=== PATIENT | female | born 1960 | race Caucasian/White ===

== ENCOUNTER 2016-11-26 16:37 | Observation (INO) ==
--- NOTE | 2016-11-26 17:04 | Emergency Department Note ---
Disposition Clinical Impression: Hyperglycemia, Febrile illness, Gastroenteritis Disposition: Admitted As Inpatient Condition: Fair Referrals: Domo Carter CNP [Primary Care Provider] - Forms: Work/School Release, ED Satisfaction Letter Time of Disposition: 19:52 (Latrell obsv) Abdominal Pain HPI - General Chief Complaint: ED Abdominal Pain Stated Complaint: Neck pain abdominal pain Time Seen by Provider: 11/26/16 16:48 Source: patient Mode of arrival: ambulatory Limitations: no limitations Nursing Notes Reviewed: Yes Vital Signs Reviewed: Yes - History of Present Illness HPI Narrative: Patient's been having lower abdominal pain but in addition she has also been having some sharp she has had no nausea no vomiting no diaphoresis she denies no vaginal discharges had a dry throat feels like there is cotton in her mouth she denies any blurred vision double vision loss vision she does admit that her sugars and an elevated running in the 3-400. She denies any chest pain or chest pressure she denies any cough hemoptysis or sputum production has had chest pressure or abdominal pain denies any burning or stinging she has had some incontinence of the urine secondary to coughing and hacking she denies any additional complaints but states she was exposed scarlatina or scarlet fever couple days Pt Subjective Complaint: abdominal pain Onset (ago): day(s) Consistency: constant Location: diffuse Pain Severity: mild Pain Scale: 2 Quality: aching Improves with: nothing Worsens with: nothing Context: history of similar episodes Associated symptoms: Reports: nausea, diarrhea. Denies: vomiting, fever, chills , constipation, dysuria, hematemesis, hematochezia, melena, hematuria, anorexia , syncope Treatments prior to arrival: none - Related Data Home Medications Medication Instructions Recorded Confirmed Atorvastatin Calcium 20 mg PO DAILY 11/26/16 11/26/16 Docusate [Colace] 100 mg PO BID 11/26/16 11/26/16 Gabapentin [Neurontin] 300 mg PO TID 11/26/16 11/26/16 Insulin ASPART [Novolog Flexpen] 6 unit SQ QIDAC 11/26/16 11/26/16 Insulin Glargine,Hum.rec.anlog 20 unit SQ QPM 11/26/16 11/26/16 [Basaglar Kwikpen U-100] Metformin HCl [Glucophage] 1,000 mg PO BID 11/26/16 11/26/16 Ondansetron ODT [Zofran ODT] 4 mg SL Q6HR 11/26/16 11/26/16 Allergies Allergy/AdvReac Type Severity Reaction Status Date / Time Sulfa (Sulfonamide AdvReac Rash Verified 05/25/16 09:46 Antibiotics) All systems ED: reviewed and negative except as stated. Constitutional: Reports: fever, weakness. Denies: chills Eyes: Denies: eye pain ENT ED: Denies: ear pain Cardiovascular: Reports: chest pain Respiratory: Denies: cough Gastrointestinal: Reports: abdominal pain, nausea, diarrhea Genitourinary: Denies: urgency Musculoskeletal: Denies: back pain Integumentary: Denies: abrasion Neurological: Denies: headache Psychiatric: Denies: anxiety Endocrine: Reports: fatigue, polydipsia, polyuria Hematological/Lymphatic: Denies: easy bleeding Allergic/Immunologic: Denies: facial swelling Physical Exam - General Limitations: no limitations General appearance: alert, in no apparent distress, anxious, obese - Head Head exam: atraumatic, normocephalic, normal inspection - Eye Eye exam: Present: normal appearance, PERRL - ENT ENT exam: normal exam, normal oropharynx, mucous membranes moist, normal external ear exam - Neck Neck exam: Present: normal inspection, full ROM, trachea midline - Chest Chest inspection: Present: normal inspection, symmetric chest wall rise - Respiratory Respiratory exam: Present: normal lung sounds bilaterally - Cardiovascular Cardiovascular exam: Present: regular rate, normal rhythm, normal heart sounds - Abdominal Exam Abdominal exam: Present: soft, tenderness, normal bowel sounds, other ( Consultations. Be well healed on the abdomen area and no evidence of redness around the sides). Absent: mass, pulsatile mass Abdominal tenderness: Present: LLQ, mild - Extremities Exam Extremities exam: Present: normal inspection, full ROM, normal capillary refill. Absent: tenderness, joint swelling - Expanded Lower Extremity Exam Neurovascular/Tendon exam: Present: normal capillary refill, normal fine/light touch Gait: observed and normal - Back Exam Back exam: Present: normal inspection, full ROM. Absent: muscle spasm - Neurological Exam Neurological exam: Present: alert, oriented X3, CN II-XII intact, normal gait - Psychiatric Psychiatric exam: Present: normal affect, normal mood - Skin Skin exam: Present: warm, dry, intact, normal color Course Course Narrative: patient seen and examin results been obtained patient was admitted for observation for IV hydration and repeat labs transferred to service of Dr. Dwyer stable Vital Signs Temperature 100.3 F H 11/26/16 16:41 Pulse Rate 105 11/26/16 16:41 Respiratory Rate 18 11/26/16 16:41 Blood Pressure 132/52 11/26/16 16:41 O2 Sat by Pulse Oximetry 97 11/26/16 16:41 Temperature 101.2 F H 11/26/16 18:54 Pulse Rate 97 11/26/16 18:54 Respiratory Rate 16 11/26/16 18:54 Blood Pressure 148/60 11/26/16 18:54 O2 Sat by Pulse Oximetry 96 11/26/16 18:54 Oxygen Delivery Oxygen Delivery Room Air Abdominal Pain - Differential Diagnosis Differential Diagnosis: Likely: abdominal pain non-specific, diverticulosis - Medical Records Medical records reviewed: Yes I reviewed the patient's medical records. - Lab Data Lab results reviewed: Yes I reviewed the patient's lab results. Result diagrams: 11/26/16 17:16 11/26/16 17:16 Lab Results 11/26/16 11/26/16 11/26/16 Range/Units 17:02 17:16 17:16 WBC (4.3-11.1) K/mcL RBC (3.82-4.97) M/mcL Hgb (11.5-15.4) g/dL Hct (35.3-44.9) % MCV (83.0-100.0) fL MCH (28.0-33.3) pg MCHC (31.6-35.5) g/dL RDW (11.5-14.5) % Plt Count (140-400) K/mcL MPV (9.4-12.4) fL Immature Gran % (0-4) % Seg Neutrophils % % Lymphocytes % % Monocytes % % Eosinophils % % Basophils % % Neutrophils # (1.6-8.9) K/mcL Lymphocytes # (0.6-4.6) K/mcL Monocytes # (0.0-1.3) K/mcL Eosinophils # (0.0-0.6) K/mcL Basophils # (0.0-0.2) K/mcL PT (9.4-12.1) Seconds INR APTT 29.0 (26.0-36.0) Seconds Sodium (136-145) mEq/L Potassium (3.5-4.5) mEq/L Chloride (98-109) mEq/L Carbon Dioxide (19-29) mEq/L BUN (7-20) mg/dL Creatinine (0.57-1.11) mg/dL Est GFR ( Amer) (> 60) Est GFR (Non-Af Amer) (> 60) BUN/Creatinine Ratio (6-26) Glucose (70-99) mg/dL Est Mean Plasma Glucose mg/dl Hemoglobin A1c ( - 5.6) % Calculated Osmolality (280-300) Calcium (8.6-10.8) mg/dL Magnesium (1.6-2.6) mg/dL Total Bilirubin (0.2-1.2) mg/dL AST (5-34) Units/L ALT (0-55) Units/L Alkaline Phosphatase (38-126) Units/L Troponin I (0-0.03) ng/mL Serum Total Protein (6.0-8.3) g/dL Albumin (3.5-5.0) g/dL Globulin (2.4-3.5) g/dL Albumin/Globulin Ratio (1.1-2.2) Lipase (8-78) Units/L Beta-Hydroxybutyric Acd 0.27 (0.02-0.27) mmol/L TSH (0.350-4.840) mcIU/mL Urine Color Yellow (Yellow) Urine Clarity Clear (Clear) Urine pH 5.0 (5.0-8.0) pH Units Ur Specific [place] 1.010 (1.010-1.025) Urine Protein Negative (Neg-Trace) mg/dL Urine Glucose (UA) 500 H (Normal) mg/dL Urine Ketones Trace H (Negative) mg/dL Urine Blood Trace-intact H (Negative) Urine Nitrite Negative (Negative) Urine Bilirubin Negative (Negative) Urine Urobilinogen Normal (Normal) mg/dL Ur Leukocyte Esterase Negative (Negative) Urine Microscopic RBC 0-3 (0-3) per hpf Urine Microscopic WBC 0-3 (0-3) per hpf Ur Squamous Epith Cells Few (None-Few) per lpf Urine Bacteria Few (None-Few) per hpf Urine Yeast Few H (None Seen) per hpf Ur Culture Indicated? NO (NO) 11/26/16 11/26/16 11/26/16 Range/Units 17:16 17:16 17:16 WBC 6.5 (4.3-11.1) K/mcL RBC 5.46 H (3.82-4.97) M/mcL Hgb 15.4 (11.5-15.4) g/dL Hct 44.8 (35.3-44.9) % MCV 82.1 L (83.0-100.0) fL MCH 28.2 (28.0-33.3) pg MCHC 34.4 (31.6-35.5) g/dL RDW 13.1 (11.5-14.5) % Plt Count 176 (140-400) K/mcL MPV 11.0 (9.4-12.4) fL Immature Gran % 0.5 (0-4) % Seg Neutrophils % 73.0 % Lymphocytes % 17.1 % Monocytes % 6.3 % Eosinophils % 2.5 % Basophils % 0.6 % Neutrophils # 4.7 (1.6-8.9) K/mcL Lymphocytes # 1.1 (0.6-4.6) K/mcL Monocytes # 0.4 (0.0-1.3) K/mcL Eosinophils # 0.2 (0.0-0.6) K/mcL Basophils # 0.0 (0.0-0.2) K/mcL PT 11.9 (9.4-12.1) Seconds INR 1.1 APTT (26.0-36.0) Seconds Sodium 137 (136-145) mEq/L Potassium 3.8 (3.5-4.5) mEq/L Chloride 100 (98-109) mEq/L Carbon Dioxide 21 (19-29) mEq/L BUN 9 (7-20) mg/dL Creatinine 0.82 (0.57-1.11) mg/dL Est GFR ( Amer) > 60 (> 60) Est GFR (Non-Af Amer) > 60 (> 60) BUN/Creatinine Ratio 11 (6-26) Glucose 317 H (70-99) mg/dL Est Mean Plasma Glucose mg/dl Hemoglobin A1c ( - 5.6) % Calculated Osmolality 295 (280-300) Calcium 9.5 (8.6-10.8) mg/dL Magnesium 2.0 (1.6-2.6) mg/dL Total Bilirubin 0.4 (0.2-1.2) mg/dL AST 159 H (5-34) Units/L ALT 94 H (0-55) Units/L Alkaline Phosphatase 125 (38-126) Units/L Troponin I (0-0.03) ng/mL Serum Total Protein 7.7 (6.0-8.3) g/dL Albumin 3.7 (3.5-5.0) g/dL Globulin 4.0 H (2.4-3.5) g/dL Albumin/Globulin Ratio 0.9 L (1.1-2.2) Lipase 68 (8-78) Units/L Beta-Hydroxybutyric Acd (0.02-0.27) mmol/L TSH (0.350-4.840) mcIU/mL Urine Color (Yellow) Urine Clarity (Clear) Urine pH (5.0-8.0) pH Units Ur Specific [place] (1.010-1.025) Urine Protein (Neg-Trace) mg/dL Urine Glucose (UA) (Normal) mg/dL Urine Ketones (Negative) mg/dL Urine Blood (Negative) Urine Nitrite (Negative) Urine Bilirubin (Negative) Urine Urobilinogen (Normal) mg/dL Ur Leukocyte Esterase (Negative) Urine Microscopic RBC (0-3) per hpf Urine Microscopic WBC (0-3) per hpf Ur Squamous Epith Cells (None-Few) per lpf Urine Bacteria (None-Few) per hpf Urine Yeast (None Seen) per hpf Ur Culture Indicated? (NO) 11/26/16 11/26/16 11/26/16 Range/Units 17:16 17:16 17:16 WBC (4.3-11.1) K/mcL RBC (3.82-4.97) M/mcL Hgb (11.5-15.4) g/dL Hct (35.3-44.9) % MCV (83.0-100.0) fL MCH (28.0-33.3) pg MCHC (31.6-35.5) g/dL RDW (11.5-14.5) % Plt Count (140-400) K/mcL MPV (9.4-12.4) fL Immature Gran % (0-4) % Seg Neutrophils % % Lymphocytes % % Monocytes % % Eosinophils % % Basophils % % Neutrophils # (1.6-8.9) K/mcL Lymphocytes # (0.6-4.6) K/mcL Monocytes # (0.0-1.3) K/mcL Eosinophils # (0.0-0.6) K/mcL Basophils # (0.0-0.2) K/mcL PT (9.4-12.1) Seconds INR APTT (26.0-36.0) Seconds Sodium (136-145) mEq/L Potassium (3.5-4.5) mEq/L Chloride (98-109) mEq/L Carbon Dioxide (19-29) mEq/L BUN (7-20) mg/dL Creatinine (0.57-1.11) mg/dL Est GFR ( Amer) (> 60) Est GFR (Non-Af Amer) (> 60) BUN/Creatinine Ratio (6-26) Glucose (70-99) mg/dL Est Mean Plasma Glucose 246 mg/dl Hemoglobin A1c 10.2 H ( - 5.6) % Calculated Osmolality (280-300) Calcium (8.6-10.8) mg/dL Magnesium (1.6-2.6) mg/dL Total Bilirubin (0.2-1.2) mg/dL AST (5-34) Units/L ALT (0-55) Units/L Alkaline Phosphatase (38-126) Units/L Troponin I 0.00 (0-0.03) ng/mL Serum Total Protein (6.0-8.3) g/dL Albumin (3.5-5.0) g/dL Globulin (2.4-3.5) g/dL Albumin/Globulin Ratio (1.1-2.2) Lipase (8-78) Units/L Beta-Hydroxybutyric Acd (0.02-0.27) mmol/L TSH 0.463 (0.350-4.840) mcIU/mL Urine Color (Yellow) Urine Clarity (Clear) Urine pH (5.0-8.0) pH Units Ur Specific [place] (1.010-1.025) Urine Protein (Neg-Trace) mg/dL Urine Glucose (UA) (Normal) mg/dL Urine Ketones (Negative) mg/dL Urine Blood (Negative) Urine Nitrite (Negative) Urine Bilirubin (Negative) Urine Urobilinogen (Normal) mg/dL Ur Leukocyte Esterase (Negative) Urine Microscopic RBC (0-3) per hpf Urine Microscopic WBC (0-3) per hpf Ur Squamous Epith Cells (None-Few) per lpf Urine Bacteria (None-Few) per hpf Urine Yeast (None Seen) per hpf Ur Culture Indicated? (NO) - Radiology Data Radiology results reviewed: Yes I reviewed the patient's radiology results. ITS Impressions Abdomen/Pelvis CT 11/26/16 17:00 IMPRESSION: No acute finding in the abdomen or pelvis. Sigmoid colon diverticulosis with no evidence of diverticulitis. D/ / Erich Waller MD / Erich Waller MD Interpreting Provider: Erich Waller MD Chest X-Ray 11/26/16 17:00 IMPRESSION: No acute cardiopulmonary disease. D/ / Kendra Correa MD / Kendra Correa MD Interpreting Provider: Kendra Correa MD - EKG Data EKG attestation: Yes I reviewed and interpreted this EKG. EKG results narrative: sinus tach rate 102 FL 108 QRS 140 QT 78 axis LV Critical Care Time Critical Care Time: No
[2016-11-26 17:22] LABS: Basophils % 0.6 %; Eosinophils # 0.2 K/mcL (0.0-0.6); Eosinophils % 2.5 %; Hematocrit 44.8 % (35.3-44.9); Hemoglobin 15.4 g/dL (11.5-15.4); Immature Granulocytes % 0.5 % (0-4); Lymphocytes # 1.1 K/mcL (0.6-4.6); Lymphocytes % 17.1 %; Mean Corpuscular HGB Conc 34.4 g/dL (31.6-35.5); Mean Corpuscular Hemoglobin 28.2 pg (28.0-33.3); Mean Corpuscular Volume 82.1 fL (83.0-100.0); Monocytes # 0.4 K/mcL (0.0-1.3); Monocytes % 6.3 %; Neutrophils # 4.7 K/mcL (1.6-8.9); Platelet Count 176 K/mcL (140-400); Red Blood Count 5.46 M/mcL (3.82-4.97); Red Cell Distribution Width 13.1 % (11.5-14.5)
[2016-11-26 17:28] LABS: INR 1.1; Prothrombin Time 11.9 Seconds (9.4-12.1)
[2016-11-26 17:41] LABS: Alanine Aminotransferase 94 Units/L (0-55); Albumin 3.7 g/dL (3.5-5.0); Albumin/Globulin Ratio 0.9 (1.1-2.2); Alkaline Phosphatase 125 Units/L (38-126); Aspartate Amino Transferase 159 Units/L (5-34); BUN/Creatinine Ratio 11 (6-26); Bilirubin,Total 0.4 mg/dL (0.2-1.2); Blood Urea Nitrogen 9 mg/dL (7-20); Calcium 9.5 mg/dL (8.6-10.8); Carbon Dioxide 21 mEq/L (19-29); Chloride 100 mEq/L (98-109); Glucose 317 mg/dL (70-99); Lipase 68 Units/L (8-78); Osmolality,Calculated 295 (280-300); Potassium 3.8 mEq/L (3.5-4.5); Sodium 137 mEq/L (136-145); Total Protein 7.7 g/dL (6.0-8.3); eGFR For African Americans > 60 (> 60); eGFR For Non-African Americans > 60 (> 60)
[2016-11-26 18:15] LABS: Bilirubin,Urine Negative (Negative); Blood,Urine Trace-intact (Negative); Clarity,Urine Clear (Clear); Color,Urine Yellow (Yellow); Glucose,Urine (UA) 500 mg/dL (Normal); Ketones,Urine Trace mg/dL (Negative); Leukocyte Esterase,Urine Negative (Negative); Nitrite,Urine Negative (Negative); Protein,Urine Negative (Neg-Trace); Urobilinogen,Urine Normal (Normal)
[2016-11-26 18:26] LABS: Bacteria,Urine Few per hpf (None-Few); RBC,Urine 0-3 per hpf (0-3); Squamous Epithelial Cell,Urine Few per lpf (None-Few); WBC,Urine 0-3 per hpf (0-3); Yeast,Urine Few per hpf (None Seen)
[2016-11-26 18:41] LABS: Hemoglobin A1C 10.2 %
[2016-11-26] MEDS ORDERED: Aspirin 81 MG TAB.CHEW PO ONE (19:57)
[2016-11-26] MEDS ORDERED: 0.9 % Sodium Chloride 1,000 ML IVC ONE (19:57)
[2016-11-26] MEDS ORDERED: Insulin Regular, Human 100 UNIT/ML IV ONE (19:57)
[2016-11-26] MEDS ORDERED: Dextrose Gel 15 GM PO PRN ×2 (20:53)
[2016-11-26] MEDS ORDERED: Ondansetron 4 MG/2 ML VIAL IVP PRN (20:53)
[2016-11-26] MEDS ORDERED: Naloxone 0.4 MG/ML INJ IVP PRN (20:53)
[2016-11-26] MEDS ORDERED: D5% in Water 1,000 ML IVC PRN (20:53)
[2016-11-26] MEDS ORDERED: *HR* Dextrose 50 % in Water (Syg) 50 ML SYRINGE IVP PRN (20:53)
[2016-11-26] MEDS: 0.9 % Sodium Chloride 1,000 ML IVC SCH (22:08)
[2016-11-26] MEDS: Gabapentin 300 MG CAPSULE PO SCH (22:08)
[2016-11-26] MEDS: Fluconazole 100 MG TABLET PO SCH (22:08)
[2016-11-26] MEDS: traMADol 50 MG TABLET PO PRN (22:39)
[2016-11-27] MEDS ORDERED: Ondansetron ODT 4 MG TAB.RAPDIS SL PRN
[2016-11-27] MEDS: 0.9 % Sodium Chloride 1,000 ML IVC SCH ×3 (03:49→17:09)
[2016-11-27 05:47] LABS: Basophils % 0.9 %; Eosinophils # 0.1 K/mcL (0.0-0.6); Eosinophils % 2.6 %; Hematocrit 41.5 % (35.3-44.9); Hemoglobin 13.7 g/dL (11.5-15.4); Immature Granulocytes % 0.4 % (0-4); Lymphocytes # 1.9 K/mcL (0.6-4.6); Mean Corpuscular Hemoglobin 27.8 pg (28.0-33.3); Mean Corpuscular Volume 84.3 fL (83.0-100.0); Mean Platelet Volume 11.2 fL (9.4-12.4); Monocytes # 0.5 K/mcL (0.0-1.3); Monocytes % 10.3 %; Neutrophils # 2.2 K/mcL (1.6-8.9); Platelet Count 141 K/mcL (140-400); Red Blood Count 4.92 M/mcL (3.82-4.97); Red Cell Distribution Width 13.2 % (11.5-14.5); Segmented Neutrophils % 45.8 %
[2016-11-27 05:52] LABS: INR 1.1; Prothrombin Time 11.8 Seconds (9.4-12.1)
[2016-11-27 06:02] LABS: BUN/Creatinine Ratio 11 (6-26); Blood Urea Nitrogen 8 mg/dL (7-20); Calcium 8.9 mg/dL (8.6-10.8); Carbon Dioxide 25 mEq/L (19-29); Chloride 106 mEq/L (98-109); Glucose 245 mg/dL (70-99); Osmolality,Calculated 300 (280-300); Potassium 4.1 mEq/L (3.5-4.5); Sodium 142 mEq/L (136-145); eGFR For African Americans > 60 (> 60); eGFR For Non-African Americans > 60 (> 60)
[2016-11-27] MEDS: *HR* Metformin 500 MG TABLET PO SCH ×2 (07:31→17:22)
[2016-11-27] MEDS: Gabapentin 300 MG CAPSULE PO SCH ×3 (07:31→21:26)
[2016-11-27] MEDS: Fluconazole 100 MG TABLET PO SCH (07:31)
[2016-11-27] MEDS: Insulin LISPRO 300 UNITS/3 ML VIAL SQ SCH ×6 (07:32→17:04)
[2016-11-27] MEDS: traMADol 50 MG TABLET PO PRN ×2 (08:13→21:26)
--- NOTE | 2016-11-27 17:13 | Internal Med History&Physical ---
Date of Encounter: 11/27/16 Time of Encounter: 16:30 Assessment and Plan (1) Dyspnea Current visit: Yes Status: Acute Will order d-dimer and Bn peptide. Chest x-ray was unremarkable. We will check room air oximetry on 6 minute walk prior to discharge. Qualifiers: Dyspnea type: shortness of breath Qualified Code(s): R06.02 - Shortness of breath (2) DM type 2 (diabetes mellitus, type 2) Current visit: Yes Status: Acute Hemoglobin A1c was 10.2% in emergency room. She will be continued on home dose of Levemir and Glucophage with Accu-Cheks and SSI. Qualifiers: Diabetes mellitus complication status: without complication Diabetes mellitus long-term insulin use: with intermediate frame tender use Qualified Code(s): E11.9 - Type 2 diabetes mellitus without complications; Z79.4 - termite exterminator helper (current) use of insulin (3) Chest pain Current visit: Yes Status: Acute Etiology not obvious. We will check d-dimer as per above. Qualifiers: Chest pain type: unspecified Qualified Code(s): R07.9 - Chest pain, unspecified Internal Medicine - H&P: HPI Chief complaint: Back and chest pain, dyspnea Admitted From: Home Plans for Post Hospital Care: Home History of present illness: Ms. Kellogg is a 56 year old female who came to emergency room stating she had developed worsening dyspnea riding back from [place] the morning of admission. She lay down in her house for approximately 30 minutes upon arising developed discomfort in her interscapular. Seem to radiate forward to her chest. There was worsening dyspnea. The pain also seemed radiate down into her left arm. She states she felt disoriented. He is brought emergency room and evaluated and admitted to [facility] floor for ongoing care needs. She states she feels slightly improved at the present time but still has mild discomfort in her lower posterior neck area. Her cardiovascular history is significant for hypertension. She had a Regadenoson stress test 05/25/2016 which showed no EKG or perfusion findings of ischemia or infarct. The LVEF was 71%. An echocardiogram the same day showed LVEF of 60-65% with moderate LV diastolic dysfunction reported. There was mild TR but no significant valvular abnormality otherwise. She reports she has had intermittent swelling in her right leg for approximately 5 years. She denies known DVT or pulmonary embolus. Her respiratory history is significant for having smoked a total of 10-15 years but never up to 1 pack per day. She has not been tested for COPD/emphysema and does not wear home oxygen. She states she is scheduled for evaluation for [place] November 2016 after she was observed to have sleep apnea during a August 2016 hospitalization at [facility]. Past Med Surg Social Fam HX - Past Medical History Medical history: cancer, diabetes, hyperlipidemia, hypertension Psychiatric history: no psych history - Social History Smoking Status: Former smoker Smokeless Tobacco Status: No Alcohol use: none Drug use: none - Family History Mother Hx Family Cardiac Disorders: Yes Hx Family Cancer: Yes Hx Family Endocrine Disorder: Yes (DM) Father Living Status: Hx Family Cardiac Disorders: Yes Hx Family Cancer: Yes Hx Family Endocrine Disorder: Yes (DM) Internal Medicine - H&P: Meds Atorvastatin Calcium 20 mg PO DAILY 11/26/16 [History] Docusate [Colace] 100 mg PO BID 11/26/16 [History] Gabapentin [Neurontin] 300 mg PO TID 11/26/16 [History] Insulin ASPART [Novolog Flexpen] 6 unit SQ QIDAC 11/26/16 [History] Insulin Glargine,Hum.rec.anlog [Basaglar Kwikpen U-100] 20 unit SQ QPM 11/26/16 [History] Metformin HCl [Glucophage] 1,000 mg PO BID 11/26/16 [History] Ondansetron ODT [Zofran ODT] 4 mg SL Q6HR 11/26/16 [History] Allergies Sulfa (Sulfonamide Antibiotics) Adverse Reaction (Verified 05/25/16 09:46) Rash All Systems PM: A 10-system review of systems was performed and is negative for pertinent findings except as documented above in the HPI. Review of systems: Gen.: She states her weight has increased 5-10 pounds in the past few months, unintentional Cardiovascular: As per history of present illness Respiratory: As per history of present illness GI: She denies disorders of her liver gallbladder or exocrine pancreas : She had a kidney stone in the distant past. She denies other kidney or bladder disorders. She had hysterectomy and oophorectomy for a malignancy ( specific site uncertain) 09/09/2016 at [facility]. She believes she is cancer free. No postoperative chemotherapy or radiation therapy was recommended. Neurologic: She denies large distribution strokes or seizures. She has been diagnosed with diabetic peripheral neuropathy Endocrine: She reports gestational diabetes during pregnancies. She states she has had DM2 for at least 15 years. She has hyperlipidemia but denies thyroid disease Hematology/oncology: She had ovary/uterus malignancy as per above. She has a history of anemia. Psychiatric: She denies anxiety depression or other mental health issues Musk skeletal: She denies arthritis gout or other bone joint or muscle disorders. - Constitutional Vitals: Temp Pulse Resp BP Pulse Ox 98.4 F 68 18 126/78 97 11/27/16 16:00 11/27/16 16:00 11/27/16 16:00 11/27/16 16:00 11/27/16 16:00 Exam: Gen.: She is a well-developed well-nourished female who appears in no severe distress at present time HEENT: Head is atraumatic and normocephalic. Eyes: EOMI. There is no scleral icterus. Mouth: Mucosa is moist. Neck: Supple and nontender. There is no thyromegaly or adenopathy noted. Heart: Regular without murmurs gallops or ectopics Lungs: No wheezes or crackles are heard. Abdomen: Soft and nontender. No masses or guarding are noted. Extremities: There is no cyanosis edema or clubbing noted. Dorsalis pedis and posterior tibial pulses are 1-2 over 2 bilaterally. Neurologic: Mental status: She is talkative and a good historian. Cranial nerves: Smile is symmetric. Forehead wrinkles bilaterally. Tongue protrudes midline. EOMI. Motor: There is no pronator drift. Cerebellar: Finger to nose is intact bilaterally. Skin: Warm and dry Internal Med - H&P Results - Labs CBC & Chem 7: 11/27/16 05:00 11/27/16 05:00 Labs: Short CBC 11/27/16 Range/Units 05:00 WBC 4.7 (4.3-11.1) K/mcL Hgb 13.7 D (11.5-15.4) g/dL Hct 41.5 (35.3-44.9) % Plt Count 141 (140-400) K/mcL Neutrophils # 2.2 (1.6-8.9) K/mcL BMP 11/27/16 05:00 Sodium 142 Potassium 4.1 Chloride 106 Carbon Dioxide 25 BUN 8 Creatinine 0.74 Glucose 245 H Calcium 8.9 Cardiac Enzymes 11/26/16 11/27/16 Range/Units 23:00 05:00 Troponin I 0.01 0.01 (0-0.03) ng/mL
[2016-11-27] MEDS ORDERED: Insulin DETEMIR 100 UNIT/ML X5UNITS SQ SCH (21:00)
[2016-11-28 07:02] VITALS: BP 137/88
[2016-11-28] MEDS: *HR* Metformin 500 MG TABLET PO SCH (07:50)
[2016-11-28] MEDS: traMADol 50 MG TABLET PO PRN (07:50)
[2016-11-28] MEDS: Gabapentin 300 MG CAPSULE PO SCH (07:50)
[2016-11-28] MEDS: Fluconazole 100 MG TABLET PO SCH (07:51)
[2016-11-28] MEDS: Insulin LISPRO 300 UNITS/3 ML VIAL SQ SCH ×4 (07:52→11:54)
--- NOTE | 2016-11-28 10:48 | Discharge Summary ---
Date of Encounter: 11/28/16 Time of Encounter: 10:30 - Discharge Diagnosis (1) Dyspnea Priority: Primary Status: Acute Qualifiers: Dyspnea type: shortness of breath Qualified Code(s): R06.02 - Shortness of breath (2) DM type 2 (diabetes mellitus, type 2) Priority: Secondary Status: Acute Qualifiers: Diabetes mellitus complication status: without complication Diabetes mellitus intermodal truck driver insulin use: with intermodal truck driver use Qualified Code(s): E11.9 - Type 2 diabetes mellitus without complications; Z79.4 - retirement (current) use of insulin (3) Chest pain Priority: Secondary Status: Resolved Qualifiers: Chest pain type: unspecified Qualified Code(s): R07.9 - Chest pain, unspecified - Discharge Medications Home Medications: Atorvastatin Calcium 20 mg PO DAILY 11/26/16 [History] Docusate [Colace] 100 mg PO BID 11/26/16 [History] Gabapentin [Neurontin] 300 mg PO TID 11/26/16 [History] Insulin ASPART [Novolog Flexpen] 6 unit SQ QIDAC 11/26/16 [History] Metformin HCl [Glucophage] 1,000 mg PO BID 11/26/16 [History] Ondansetron ODT [Zofran ODT] 4 mg SL Q6HR 11/26/16 [History] Insulin Glargine,Hum.rec.anlog [Basaglar Kwikpen U-100] 28 unit SQ QPM #0 11/28 [Rx] Allergies/Adverse Reactions: Allergies Sulfa (Sulfonamide Antibiotics) Adverse Reaction (Verified 05/25/16 09:46) Rash Procedures/tests Complete & Pending: Procedures Performed prior 72 hours Category Date Time Status CT chest wo con [CT] Routine Cat Scan 11/27/16 18:03 Completed Date of admission: 11/26/16 20:28 Primary care physician: Domo Carter CNP - Patient Status Disposition: Home, Self-Care Condition: Fair Functional capacity at discharge: independent ambulation Overall status at discharge: patient is progressing back to baseline - Discharge Instructions Follow Up With: Domo Carter CNP [Primary Care Provider] - 1 week (appt will be made by hospital staff on 11/29/16 and hospital satff will notify you via telephone of time and date of appt ) - Diet and Activity Activity: resume usual activities as tolerated Diet: advance to your usual diet Hospital course: Ms. Kellogg is a 56 year old female who came to emergency room stating she had developed worsening dyspnea riding back from [place] the morning of admission. She lay down in her house for approximately 30 minutes and upon arising developed discomfort in her interscapular area. The discomfort seemed to radiate forward to her chest. There was worsening dyspnea. The pain also seemed radiate down into her left arm. She states she felt disoriented. She was brought to emergency room and evaluated and admitted to [facility] for ongoing care needs. Initial orders were written by the emergency room physician. I saw her on November 27 and performed a history and physical. Bn peptide returned normal at 40. D- dimer was normal at 364. A chest CT without contrast was done to further evaluate her dyspnea. There was bibasilar atelectasis with a few bilateral solitary pulmonary nodules measuring up to 0.6 x 0.3 cm. A follow-up chest CT in 1 year was recommended. I will let her PCP Domo Carter follow-up on this. There were no new problems and on November 28 she was stable for discharge home. Room air oximetry on a 6 minute walk be checked prior to discharge. She will follow with her PCP within one week. - Time Spent with Patient Total time spent providing and/or coordinating discharge services: - Constitutional Vitals: Temp Pulse Resp BP Pulse Ox 98.6 F 63 18 137/88 98 11/28/16 06:57 11/28/16 06:57 11/28/16 06:57 11/28/16 06:57 11/28/16 06:57
--- NOTE | 2016-11-29 07:39 | Electrocardiograph Report ---
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
== END 2016-11-28 12:25 | disposition home or self-care (01) ==
LOC: EMEROOPIK 16:37 → INPPIK 16:37
PROVIDERS: ADMIT Internal Medicine; ATTEND Internal Medicine